=== PATIENT | female | born 1990 | race Caucasian/White ===

== ENCOUNTER 2016-04-09 20:57 | Outpatient (CLI) | payer SELFPAY ==
[~2016-04-09] VITALS: Ht 157.5 cm; Wt 72.1 kg
--- NOTE | 2016-04-09 22:36 | PN ---
Date/Time of Note Date/Time of Note DATE: 04/09/16 TIME: 22:12 OB Subjective Subjective Subjective 26 yo P0 @ 26 wks w decreased movement, now feels baby moving no vb or lof or ctx OB Objective Objective Objective Abdomen- gravid, n/t SVE- deferred FHT- Cat I [place]- no ctx Abdomen: WNL Extremities: Normal Accelerations: Accelerations Present Decelerations: No Decelerations Varibility: Moderate Contractions on Admission: None OB Assessment/Plan Other Assessment: patient came for decreased FM reassuring status sono/FELISA to be done Other plan: if nml FELISA/sono, d/c home [facility] precautions f/u w OB provider BRUNA GANN MD Apr 09, 2016 22:30
--- NOTE | 2016-04-09 22:57 | RADRPT ---
PROCEDURE: Obstetrical ultrasound greater than 14 weeks CLINICAL INDICATION: Decreased movement TECHNIQUE: Real time sonographic imaging of the gravid uterus is performed transabdominally and mu ltiple static golden scale and Doppler images are submitted for review as are measurements. The image s are reviewed on the PACS. COMPARISON: 02/24/2016 FINDINGS: There is a single living intrauterine gestation in breech presentation. The heart beat is est imated at 139 bpm. The measurements are as follows: BPD:6.98 cm HC:25.98 cm AC:23.26 cm FL:5.24 cm Estimated gestational age is 28 weeks. The estimated date of delivery is 07/02/2016, appropriate gr owth compared to prior study. The estimated weight is 1128 grams. Placenta is posterior and grade 1. There is no evidence of placenta previa or abruption. The amniotic fluid index is normal estimated at 9.4 cm. RPTAT:HJJR IMPRESSION: 1. Single viable intrauterine gestation in breech presentation estimated at 28 weeks with the estima neptali date of delivery 07/02/2016, appropriate interval growth the study of 02/24/2016. 2. Estimated weight 1128 g 3. Amniotic fluid index of 9.4 cm. Physician Lenard Date Time Electronically viewed and signed by Physician Lenard on 04/09/2016 22:57 /
[2016-04-09 23:13] VITALS: Ht 157.5 cm; Wt 72.1 kg
[2016-04-09 23:14] VITALS: BP 107/66; PULSE 81; RESP 18
--- NOTE | 2016-04-09 23:39 | TRIAGE ---
OB Triage Datetime Report Generated by CPN: 04/09/2016 23:39 Datetime: 04/09/2016 22:22 Time of Arrival: 04/09/2016 20:55 EGA: 27.5 Arrived By: Ambulatory Arrived From: Home Chief Complaint: Decreased movement Movement: Decreased Contractions: Denies/Absent Contractions: None Rupture of Membranes: Denies Vaginal Bleeding: None Vaginal Discharge: Denies Recent Sexual Intercouse: Denies Abdominal Trauma: Not Applicable Patient Complaints: Other Additional Patient Complaints: Decreased movement since 1400 Time Provider Notified: 04/09/2016 21:15 Provider Notified: Martin Initial Plan: VS, EFM, SEE MD Datetime: 04/09/2016 22:20 Stage of : OB Triage Assessment Type: Admission Assessment Maternal Assessment Level of Consciousness: Fully Conscious DTR's/Clonus: DTRs 2+; No Clonus Headache: Denies Blurred Vision: No Respiratory Effort: Unlabored; Regular Rhythm; Equal Expansion Breath Sounds, Left: Clear and Equal Breath Sounds, Right: Clear and Equal Nausea/Vomiting: Denies RUQ Epigastric Pain: Denies Facial Edema: None Temperature Route: Oral Fall Risk Assessment History of Falling: (0) No Secondary Diagnosis: (0) No Ambulatory Aid: (0) Bedrest/Nurse Assist IV Therapy: (0) No Gait: (0) Normal/Bedrest/Immobile Mental Status: (0) Oriented to Own Ability Fall Score: 0 Fall Risk Score Definition: No Risk: No action required Datetime: 04/09/2016 22:00 Maternal Assessment Level of Consciousness: Fully Conscious DTR's/Clonus: DTRs 2+; No Clonus Headache: Denies Blurred Vision: No Respiratory Effort: Unlabored; Regular Rhythm; Equal Expansion Breath Sounds, Left: Clear and Equal Breath Sounds, Right: Clear and Equal Nausea/Vomiting: Denies RUQ Epigastric Pain: Denies Facial Edema: None Fall Risk Assessment History of Falling: (0) No Secondary Diagnosis: (0) No Ambulatory Aid: (0) Bedrest/Nurse Assist IV Therapy: (0) No Gait: (0) Normal/Bedrest/Immobile Mental Status: (0) Oriented to Own Ability Fall Score: 0 Fall Risk Score Definition: No Risk: No action required Datetime: 04/09/2016 21:26 Heart Rate Comments: PT ACKNOWLEDGES MOVEMENT Datetime: 04/09/2016 21:15 Stage of : OB Triage Temperature Route: Oral Pain Assessment Pain Scale: 0 Pain Presence: None/Denies Pain Type: N/A Pain Goal: 0
== END 2016-04-09 23:45 | disposition home or self-care (01) ==
LOC: OBT 20:57 → L-D 20:59 → OBT 23:45
PROVIDERS: ATTEND Obstetrics & Gynecology
DX: O36.8120 Decreased fetal movements, second trimester, not applicable or unspecified (principal); Z3A.26 26 weeks gestation of pregnancy
CPT/HCPCS: 76815; G0463